=== PATIENT | female | born 1985 | race American Indian/Alaskan Native ===

== ENCOUNTER 2017-05-14 08:08 | Emergency (ER) | payer SELFPAY ==
[2017-05-14 08:12] VITALS: BP 119/86
[2017-05-14 10:23] LABS: Bacteria,Urine 1+ /HPF (Negative); Bilirubin,Urine NEG (Negative); Blood,Urine NEG (Negative); Color,Urine Yellow (Yellow); HCG Qualitative,Urine Negative (Negative); Mucus,Urine FEW /HPF; Nitrite,Urine NEG (Negative); Protein,Urine <15 mg/dL mg/dL (Negative); Urobilinogen,Urine < 2.0 mg/dL (<2.0)
--- NOTE | 2017-05-14 11:15 | Emergency Department Report ---
ED Female HPI - General Chief complaint: Urogenital-Female Stated complaint: PELVIC PAIN Time Seen by Provider: 05/14/17 11:09 Source: patient Mode of arrival: Ambulatory Limitations: No Limitations - History of Present Illness Initial comments: Patient is a 32-year-old -[place] female who presents for left lower pelvic pain 4 days patient denies history of fibroids or or ovarian cysts patient denies bleeding no vaginal discharge no back pain no dysuria no frequency no dyspareunia. Patient states this is not an STD. 04/27/2017 has taken negative test Complaint: pelvic pain Onset/Timin -: days(s) Location: LLQ Radiation: non-radiating, LLQ Severity: moderate Severity scale (0 -10): 4 Quality: sharp, aching Consistency: constant Improves with: none Worsens with: none Are you Now?: No Last Menstrual Period: 04/27/17 EDC: 02/01/18 Associated Symptoms: denies: vaginal discharge, vaginal bleeding, abdominal pain , nausea/vomiting, fever/chills, headaches, loss of appetite, dysuria, hematuria , rash, seizure, shortness of breath, syncope, weakness - Related Data Sexually active: Yes Para: 2 A: 2 Previous Rx's Medication Instructions Recorded Last Taken Type ALBUTEROL Inhaler [ProAir HFA 2 puff IH QID PRN #1 inhalation 01/30/14 Unknown Rx Inhaler] Prednisone [Prednisone 5 mg (6-Day 5 mg PO .TAPER #1 tab.ds.pk 01/30/14 Unknown Rx Pack, 21 Tabs)] guaiFENesin [Robitussin] 200 mg PO Q4HR #1 bottle 01/30/14 Unknown Rx Azithromycin [Zithromax] 250 mg PO DAILY #6 tablet 01/20/16 Unknown Rx Chlorpheniramine/Phenylephrine 1 each PO BID #15 tablet 01/20/16 Unknown Rx [Ed-A-Hist 4 mg-10 mg Tablet] metroNIDAZOLE [Flagyl] 500 mg PO Q12HR #14 tab 05/14/17 Unknown Rx Allergies Allergy/AdvReac Type Severity Reaction Status Date / Time codeine AdvReac Nausea Verified 01/30/14 10:05 seafood Allergy Anaphylaxis Uncoded 01/20/16 13:49 ED Review of Systems ROS: Stated complaint: PELVIC PAIN Other details as noted in HPI Constitutional: denies: chills, fever Eyes: denies: eye pain, eye discharge, vision change ENT: denies: ear pain, throat pain Respiratory: denies: cough, shortness of breath, wheezing Cardiovascular: denies: chest pain, palpitations Endocrine: no symptoms reported Gastrointestinal: denies: abdominal pain, nausea, diarrhea Genitourinary: abnormal menses. denies: urgency, dysuria, frequency, hematuria , discharge, dyspareunia Musculoskeletal: denies: back pain, joint swelling, arthralgia Skin: denies: rash, lesions Neurological: denies: headache, weakness, paresthesias Psychiatric: denies: anxiety, depression Hematological/Lymphatic: denies: easy bleeding, easy bruising ED Past Medical Hx - Past Medical History Additional medical history: Seasonal allergies - Surgical History Additional Surgical History: - Social History Smoking Status: Never Smoker Substance Use Type: Alcohol - Medications Home Medications: Home Medications Medication Instructions Recorded Confirmed Last Taken Type ALBUTEROL Inhaler [ProAir HFA 2 puff IH QID PRN #1 inhalation 01/30/14 Unknown Rx Inhaler] Prednisone [Prednisone 5 mg (6-Day 5 mg PO .TAPER #1 tab.ds.pk 01/30/14 Unknown Rx Pack, 21 Tabs)] guaiFENesin [Robitussin] 200 mg PO Q4HR #1 bottle 01/30/14 Unknown Rx Azithromycin [Zithromax] 250 mg PO DAILY #6 tablet 01/20/16 Unknown Rx Chlorpheniramine/Phenylephrine 1 each PO BID #15 tablet 01/20/16 Unknown Rx [Ed-A-Hist 4 mg-10 mg Tablet] metroNIDAZOLE [Flagyl] 500 mg PO Q12HR #14 tab 05/14/17 Unknown Rx ED Physical Exam - General Limitations: No Limitations General appearance: alert, in no apparent distress - Head Head exam: Present: atraumatic, normocephalic - Eye Eye exam: Present: normal appearance - ENT ENT exam: Present: mucous membranes moist - Neck Neck exam: Present: normal inspection - Respiratory Respiratory exam: Present: normal lung sounds bilaterally. Absent: respiratory distress - Cardiovascular Cardiovascular Exam: Present: regular rate, normal rhythm. Absent: systolic murmur, diastolic murmur, rubs, gallop - GI/Abdominal GI/Abdominal exam: Present: soft. Absent: distended, tenderness, guarding, rebound, rigid, normal bowel sounds, organomegaly, mass, bruit, pulsatile mass, hernia - Rectal Rectal exam: Present: deferred - External exam: Present: normal external exam Speculum exam: Present: erythema, vaginal discharge. Absent: cervical discharge , vaginal bleeding, foreign body, tissue, laceration - Extremities Exam Extremities exam: Present: normal inspection - Back Exam Back exam: Present: normal inspection - Neurological Exam Neurological exam: Present: alert, oriented X3 - Psychiatric Psychiatric exam: Present: normal affect, normal mood - Skin Skin exam: Present: warm (she WRegimen and will), dry, intact, normal color. Absent: rash ED Course Vital Signs 05/14/17 08:10 Temperature 98.5 F Pulse Rate 71 Respiratory 18 Rate Blood Pressure 119/86 O2 Sat by Pulse 99 Oximetry ED Medical Decision Making - Medical Decision Making patient is a 32-year-old -[place] female who presents for left lower pelvic pain 4 days patient denies history of fibroids or or ovarian cysts patient denies bleeding no vaginal discharge no back pain no dysuria no frequency no dyspareunia. Patient states this is not an STD. 04/27/2017 has taken negative test, vaginal exam: mild vaginal erythema white thick discharge malodorous , wet prep normal , plan: flagyl 500mg po bid x 7 days follow up with obgyn in 3=2-3 daays pt verbalized agreement of same. Critical care attestation.: If time is entered above; I have spent that time in minutes in the direct care of this critically ill patient, excluding procedure time. ED Disposition Clinical Impression: Bacterial vaginosis Disposition: - TO HOME OR SELFCARE Is pt being admited?: No Does the pt Need Aspirin: No Condition: Good Instructions: Bacterial Vaginosis (ED) Prescriptions: metroNIDAZOLE [Flagyl] 500 mg PO Q12HR #14 tab Referrals: RAIZA OTT MD [Staff Physician] - 3-5 Days Time of Disposition: 12:07
== END 2017-05-14 12:26 | disposition home or self-care (01) ==
LOC: ED 08:08
DX: N76.0 Acute vaginitis (principal); B96.89 Other specified bacterial agents as the cause of diseases classified elsewhere; Z88.6 Allergy status to analgesic agent; Z91.013 Allergy to seafood
CPT/HCPCS: 81001; 81025; 87210; 87591; 99284

== ENCOUNTER 2020-08-28 13:50 | Emergency (ER) | payer OTHER ==
[2020-08-28 14:02] VITALS: BP 132/86
--- NOTE | 2020-08-28 15:07 | Emergency Department Report ---
ED Head Trauma HPI - General Chief complaint: Head Injury Stated complaint: POSS CONCUSSION HEAD INJURY Source: patient Mode of arrival: Ambulatory Limitations: No Limitations - History of Present Illness Initial comments: 35-year-old female presents to the ER today for evaluation after head injury. Patient states that yesterday, she was sitting in the dining room floor folding laundry. She states that she is shifted forward and then was about to sit up when she struck the crown of head underneath the dining room table. She denies any LOC. She reports mild pressure in the occipital aspect of her head, and earlier today she had some slight nausea and dizziness which has since resolved. She states that she was just concerned she may have had a concussion as she had a concussion when she was 10 years old. She reports no cuts or bruising to her scalp. She is not on any blood thinners. She has no bleeding disorders. She reports no other symptoms at this time. MD Complaint: head injury -: days(s) (1) - Related Data Previous Rx's Medication Instructions Recorded Last Taken Type Albuterol Mdi (or & Nicu Only) 2 puff IH QID PRN #1 inhalation 01/30/14 Unknown Rx [ProAir HFA Inhaler] Prednisone [Prednisone 5 mg (6-Day 5 mg PO .TAPER #1 tab.ds.pk 01/30/14 Unknown Rx Pack, 21 Tabs)] guaiFENesin [Robitussin] 200 mg PO Q4HR #1 bottle 01/30/14 Unknown Rx Azithromycin [Zithromax] 250 mg PO DAILY #6 tablet 01/20/16 Unknown Rx Chlorpheniramine/Phenylephrine 1 each PO BID #15 tablet 01/20/16 Unknown Rx [Ed-A-Hist 4 mg-10 mg Tablet] metroNIDAZOLE [Flagyl] 500 mg PO Q12HR #14 tab 05/14/17 Unknown Rx Allergies/Adverse reactions: Allergies Allergy/AdvReac Type Severity Reaction Status Date / Time codeine AdvReac Nausea Verified 01/30/14 10:05 seafood Allergy Anaphylaxis Uncoded 01/20/16 13:49 ED Review of Systems ROS: Stated complaint: POSS CONCUSSION HEAD INJURY Other details as noted in HPI Comment: All other systems reviewed and negative Constitutional: denies: chills, fever Eyes: denies: eye pain, eye discharge, vision change ENT: denies: ear pain, throat pain Respiratory: denies: cough, shortness of breath, SOB with exertion, SOB at rest, wheezing Cardiovascular: denies: chest pain, palpitations Gastrointestinal: nausea. denies: abdominal pain, vomiting, diarrhea, constipation, hematemesis, melena, hematochezia Genitourinary: denies: frequency Musculoskeletal: denies: back pain, joint swelling, arthralgia Skin: denies: rash, lesions, change in color, change in hair/nails, pruritus Neurological: headache, other (Dizzy). denies: weakness, numbness, paresthesias, confusion Psychiatric: as per HPI. denies: auditory hallucinations, visual hallucin ations, homicidal thoughts, suicidal thoughts Hematological/Lymphatic: denies: easy bleeding, easy bruising ED Past Medical Hx - Past Medical History Additional medical history: Seasonal allergies - Surgical History Past Surgical History?: Yes Additional Surgical History: - Social History Smoking Status: Never Smoker Substance Use Type: Alcohol - Medications Home Medications: Home Medications Medication Instructions Recorded Confirmed Last Taken Type Albuterol Mdi (or & Nicu Only) 2 puff IH QID PRN #1 inhalation 01/30/14 Unknown Rx [ProAir HFA Inhaler] Prednisone [Prednisone 5 mg (6-Day 5 mg PO .TAPER #1 tab.ds.pk 01/30/14 Unknown Rx Pack, 21 Tabs)] guaiFENesin [Robitussin] 200 mg PO Q4HR #1 bottle 01/30/14 Unknown Rx Azithromycin [Zithromax] 250 mg PO DAILY #6 tablet 01/20/16 Unknown Rx Chlorpheniramine/Phenylephrine 1 each PO BID #15 tablet 01/20/16 Unknown Rx [Ed-A-Hist 4 mg-10 mg Tablet] metroNIDAZOLE [Flagyl] 500 mg PO Q12HR #14 tab 05/14/17 Unknown Rx ED Physical Exam - General Limitations: No Limitations General appearance: alert, in no apparent distress - Head Head exam: Present: atraumatic, normocephalic, normal inspection - Eye Eye exam: Present: normal appearance, PERRL, EOMI Pupils: Present: normal accommodation - ENT ENT exam: Present: normal exam, mucous membranes moist, TM's normal bilaterally, normal external ear exam - Neck Neck exam: Present: normal inspection, full ROM. Absent: tenderness - Respiratory Respiratory exam: Present: normal lung sounds bilaterally. Absent: respiratory distress, wheezes, rales, rhonchi - Cardiovascular Cardiovascular Exam: Present: regular rate, normal rhythm, normal heart sounds - Neurological Exam Neurological exam: Present: alert, oriented X3, CN II-XII intact, normal gait, other (Normal [id number]. No pronator drift. Normal [id number].). Absent: motor sensory deficit - Psychiatric Psychiatric exam: Present: normal affect, normal mood - Skin Skin exam: Present: intact ED Course Vital Signs 08/28/20 14:01 Temperature 98.9 F Pulse Rate 63 Respiratory 18 Rate Blood Pressure 132/86 O2 Sat by Pulse 100 Oximetry - Medical Decision Making The patient presented with a complaint of a head injury. Patient is resting comfortably and he is alert and in no distress. The patient has a normal mental status, has a GCS of 15, and is neurologically intact with a normal gait in the ER. Her history, exam, and current condition does not demonstrate signs of basilar skull fracture, clinically significant intracranial injury or cervical trauma or any other emergent condition warranting testing, transfer, admission or emergent specialist consult at this time. Discussed suspected diagnosis and treatment plan with patient. She will be given head injury precautions. Patient's vital signs have been stable. The patient condition is stable and appropriate for discharge. The patient will pursue further outpatient evaluation with the primary care physician. Critical care attestation.: If time is entered above; I have spent that time in minutes in the direct care of this critically ill patient, excluding procedure time. ED Disposition Clinical Impression: Scalp contusion, Head injury, closed, without LOC Disposition: - TO HOME OR SELFCARE Is pt being admited?: No Does the pt Need Aspirin: No Condition: Stable Instructions: Facial or Scalp Contusion, Head Injury, Adult, [id number] Additional Instructions: I recommend taking tylenol as needed for pain. Rest. Follow-up closely with your primary care doctor. Return to the ER if you develop a severe uncontrollable headache, severe uncontrollable nausea vomiting, slurred speech, blurry vision, altered mental status. Referrals: TIFFANIE CHAVIRA MD [Staff Physician] - 3-5 Days Forms: Work/School Release Form(ED) Time of Disposition: 15:09
== END 2020-08-28 15:40 | disposition home or self-care (01) ==
LOC: ED 13:50
DX: S09.90XA Unspecified injury of head, initial encounter (principal); Z98.890 Other specified postprocedural states; Z79.899 Other long term (current) drug therapy; Z88.8 Allergy status to other drugs, medicaments and biological substances; W22.8XXA Striking against or struck by other objects, initial encounter; Y93.89 Activity, other specified; Y92.89 Other specified places as the place of occurrence of the external cause; Y99.8 Other external cause status
CPT/HCPCS: 99281

== ENCOUNTER 2020-10-28 09:27 | Emergency (ER) | payer OTHER ==
[2020-10-28 09:42] VITALS: BP 142/79
--- NOTE | 2020-10-28 10:40 | Emergency Department Report ---
Chief Complaint: Nausea/Vomiting/Diarrhea Stated Complaint: NAUSEA,CHILLS,TONGUE SORE - HPI History of Present Illness: 35-year-old -[place] female presents to the emergency room concern for possible Covid. Patient states she has been having some nausea chills fatigue for the last 2 days. Patient was concerned that her tongue was pale. Patient is not vaccinated. She does have a primary care provider Dr. Harrell. She denies any chest pain shortness of breathing difficulty breathing no sore throat no nasal congestion. - Exam Vital Signs: Vital Signs 10/28/20 09:41 Temperature 98.4 F Pulse Rate 78 Respiratory 18 Rate Blood Pressure 142/79 O2 Sat by Pulse 99 Oximetry Physical Exam: General: Awake, appropriately interactive, no acute distress. Neck: Supple. Full range of motion intact. Cardiovascular: Normal peripheral perfusion. Pulmonary: No respiratory distress. Patient is speaking normally without use of accessory muscles. Skin: No apparent rashes or lesions. Neurological: No facial asymmetry. Speech is clear. Follows commands. Patient is alert and oriented. Musculoskeletal: Full range of motion, no crepitus. No tenderness to palpate nonerythematous no edema test appreciated. Able to bear weight and ambulate without difficulty. Distal neurovascular and motor/sensory function is intact. Psych: Cooperative. Appropriate mood and affect. MSE screening note: Focused history and physical exam performed. Due to findings the following was ordered: 35-year-old -[place] female presents to the emergency room concern for possible Covid. Patient states she has been having some nausea chills fatigue for the last 2 days. Patient was concerned that her tongue was pale. Patient is not vaccinated. She does have a primary care provider Dr. Harrell. She denies any chest pain shortness of breathing difficulty breathing no sore throat no nasal congestion. Recommend Covid testing patient is given information for [facility] urgent care virtual visit. ED Disposition for MSE Disposition: DC-01 TO HOME OR SELFCARE Is pt being admited?: No Does the pt Need Aspirin: No Condition: Stable Additional Instructions: Recommend [facility] for COVID testing. Referrals: [facility] [Other] - 3-5 Days Forms: Work/School Release Form(ED)
== END 2020-10-28 10:50 | disposition home or self-care (01) ==
LOC: ED 09:27
DX: R11.0 Nausea (principal); R53.83 Other fatigue; R68.83 Chills (without fever); Z20.822 Contact with and (suspected) exposure to COVID-19
CPT/HCPCS: 99282

== ENCOUNTER 2021-09-25 10:30 | Emergency (ER) | payer OTHER ==
[2021-09-25 10:46] VITALS: BP 133/89
[2021-09-25 14:37] LABS: Bilirubin,Urine NEG (Negative); Blood,Urine NEG (Negative); Color,Urine Straw (Yellow); Protein,Urine <15 mg/dL mg/dL (Negative); Urobilinogen,Urine < 2.0 mg/dL (<2.0)
[2021-09-25 14:38] LABS: HCG Qualitative,Urine Negative (Negative)
[2021-09-25 14:41] LABS: Bacteria,Urine 2+ /HPF (Negative); Mucus,Urine FEW /HPF; WBC,Urine < 1.0 /HPF (0.0-6.0)
--- NOTE | 2021-09-25 15:39 | Emergency Department Report ---
ED Abdominal Pain HPI - General Chief Complaint: Abdominal Pain Stated Complaint: PELVIC DISCOMFORT Time Seen by Provider: 09/25/21 12:51 Source: patient Mode of arrival: Ambulatory Limitations: No Limitations - History of Present Illness Initial Comments: 36-year-old black female with no past medical history presents to the emergency department for evaluation of pelvic discomfort and cramping for the last several months. She states that she has been seen by her [employer] and her primary care provider and has been treated for bacterial vaginosis, gonorrhea, chlamydia, and a UTI. She states that the cramping started back a couple days ago, and it is intermittent and very mild may be 2 out of 10. She denies dysuria, vaginal discharge, vaginal bleeding, and fever. She states that she has not taken any medication for her symptoms. MD Complaint: other (Pelvic discomfort and cramping) -: Gradual, days(s) (2-3) Location: diffuse Radiation: none Migration to: no migration Severity scale (0 -10): 3 Quality: cramping Consistency: intermittent Associated Symptoms: denies: nausea, vomiting, diarrhea, fever, chills, dysuria, hematemesis, hematochezia, melena, hematuria, anorexia, syncope - Related Data LMP Date: 08/31/21 Previous Rx's Medication Instructions Recorded Last Taken Type Albuterol Mdi (or & Nicu Only) 2 puff IH QID PRN #1 inhalation 01/30/14 Unknown Rx [ProAir HFA Inhaler] Prednisone [Prednisone 5 mg (6-Day 5 mg PO .TAPER #1 tab.ds.pk 01/30/14 Unknown Rx Pack, 21 Tabs)] guaiFENesin [Robitussin] 200 mg PO Q4HR #1 bottle 01/30/14 Unknown Rx Azithromycin [Zithromax] 250 mg PO DAILY #6 tablet 01/20/16 Unknown Rx Chlorpheniramine/Phenylephrine 1 each PO BID #15 tablet 01/20/16 Unknown Rx [Ed-A-Hist 4 mg-10 mg Tablet] metroNIDAZOLE [Flagyl] 500 mg PO Q12HR #14 tab 05/14/17 Unknown Rx Ibuprofen [Motrin 600 MG tab] 600 mg PO Q8H PRN #30 tablet 09/25/21 Unknown Rx Allergies Allergy/AdvReac Type Severity Reaction Status Date / Time codeine AdvReac Intermediate Nausea Verified 09/25/21 10:46 seafood Allergy Anaphylaxis Uncoded 01/20/16 13:49 ED Review of Systems ROS: Stated complaint: PELVIC DISCOMFORT Other details as noted in HPI Comment: All other systems reviewed and negative Constitutional: denies: chills, fever, malaise, weakness Eyes: denies: vision change ENT: denies: throat pain, dental pain Respiratory: denies: cough, shortness of breath, SOB with exertion, SOB at rest, stridor, wheezing Cardiovascular: denies: chest pain, palpitations, dyspnea on exertion Gastrointestinal: denies: abdominal pain, nausea, vomiting, diarrhea, hem atemesis, melena, hematochezia Genitourinary: denies: urgency, dysuria, frequency, hematuria, discharge, abnormal menses Musculoskeletal: denies: back pain Skin: denies: rash, lesions Neurological: denies: headache, weakness, numbness, paresthesias, confusion, abnormal gait ED Past Medical Hx - Past Medical History Additional medical history: Seasonal allergies - Surgical History Additional Surgical History: - Social History Smoking Status: Never Smoker Substance Use Type: Alcohol - Medications Home Medications: Home Medications Medication Instructions Recorded Confirmed Last Taken Type Albuterol Mdi (or & Nicu Only) 2 puff IH QID PRN #1 inhalation 01/30/14 Unknown Rx [ProAir HFA Inhaler] Prednisone [Prednisone 5 mg (6-Day 5 mg PO .TAPER #1 tab.ds.pk 01/30/14 Unknown Rx Pack, 21 Tabs)] guaiFENesin [Robitussin] 200 mg PO Q4HR #1 bottle 01/30/14 Unknown Rx Azithromycin [Zithromax] 250 mg PO DAILY #6 tablet 01/20/16 Unknown Rx Chlorpheniramine/Phenylephrine 1 each PO BID #15 tablet 01/20/16 Unknown Rx [Ed-A-Hist 4 mg-10 mg Tablet] metroNIDAZOLE [Flagyl] 500 mg PO Q12HR #14 tab 05/14/17 Unknown Rx Ibuprofen [Motrin 600 MG tab] 600 mg PO Q8H PRN #30 tablet 09/25/21 Unknown Rx ED Physical Exam - General Limitations: No Limitations General appearance: alert, in no apparent distress - Head Head exam: Present: atraumatic, normocephalic - Eye Eye exam: Present: normal appearance. Absent: conjunctival injection - Neck Neck exam: Present: normal inspection, full ROM. Absent: tenderness, lymphadenopathy - Respiratory Respiratory exam: Present: normal lung sounds bilaterally. Absent: respiratory distress, wheezes, rales, rhonchi, stridor, chest wall tenderness - Cardiovascular Cardiovascular Exam: Present: regular rate, normal heart sounds - GI/Abdominal GI/Abdominal exam: Present: soft, normal bowel sounds. Absent: distended, tenderness, guarding, rebound, rigid - Extremities Exam Extremities exam: Present: normal inspection, normal capillary refill. Absent: pedal edema, joint swelling, calf tenderness - Back Exam Back exam: Present: normal inspection. Absent: CVA tenderness (R), CVA tenderness (L), vertebral tenderness - Neurological Exam Neurological exam: Present: alert, oriented X3, normal gait - Psychiatric Psychiatric exam: Present: normal affect, normal mood - Skin Skin exam: Present: warm, dry, intact, normal color ED Course Vital Signs 09/25/21 10:44 Temperature 98.2 F Pulse Rate 87 Respiratory 18 Rate Blood Pressure 133/89 [Right] O2 Sat by Pulse 98 Oximetry ED Medical Decision Making - Medical Decision Making 36-year-old black female with no past medical history presents to the emergency department for evaluation of pelvic discomfort and cramping for the last several months. She states that she has been seen by her [employer] and her primary care provider and has been treated for bacterial vaginosis, gonorrhea, chlamydia, and a UTI. She states that the cramping started back a couple days ago, and it is intermittent and very mild may be 2 out of 10. She denies dysuria, vaginal discharge, vaginal bleeding, and fever. She states that she has not taken any medication for her symptoms Physical exam unremarkable. Urine negative for UTI and . Patient states that pain is very light and just a discomfort. She is advised to use ibuprofen at home as needed for cramping and follow-up with [employer] or primary care provider for further evaluation and management or return to the emergency department as needed. She verbalized symptoms understanding of and agreement with plan of care. Critical care attestation.: If time is entered above; I have spent that time in minutes in the direct care of this critically ill patient, excluding procedure time. ED Disposition Clinical Impression: Pelvic cramping Disposition: 01 HOME / SELF CARE / HOMELESS Is pt being admited?: No Does the pt Need Aspirin: No Condition: Stable Instructions: Pelvic Pain, Female, [id number], Abdominal Pain (ED) Additional Instructions: Take medications as prescribed. Follow-up with primary care provider and [employer] for further evaluation and management. Turn to the emergency department as needed. Prescriptions: Ibuprofen [Motrin 600 MG tab] 600 mg PO Q8H PRN #30 tablet PRN Reason: Pain Referrals: TIFFANIE CHAVIRA MD [Staff Physician] - 3-5 Days EVE TRUONG MD [Staff Physician] - 3-5 Days Forms: Work/School Release Form(ED) Time of Disposition: 15:38
== END 2021-09-25 15:55 | disposition home or self-care (01) ==
LOC: ED 10:30
DX: R10.2 Pelvic and perineal pain (principal); R25.2 Cramp and spasm; J30.2 Other seasonal allergic rhinitis; Z98.890 Other specified postprocedural states; Z88.5 Allergy status to narcotic agent; Z91.013 Allergy to seafood
CPT/HCPCS: 81001; 81025; 99283